=== PATIENT | male | born 2000 | race African-American/Black ===

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

== ENCOUNTER 2020-03-17 11:15 | Emergency (ER) | payer SELFPAY ==
[2020-03-17 11:25] VITALS: BP 138/64
--- NOTE | 2020-03-17 11:39 | ED Physician Documentation ---
History of Present Illness - Stated complaint Stated Complaint: L ANKLE PX - Chief complaint Chief Complaint: Trauma Ext - Additonal information Additional information: 19-year-old male comes to the emergency department with acute left lower leg ankle pain and swelling. 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 He inverted his left ankle. He has tenderness just above the lateral malleolus. No history of previous injury to this foot. Unable to bear weight on the foot. Past medical history unremarkable. Takes no prescribed medications. Review of Systems Constitutional: reports: Reviewed and negative Ears: reports: Reviewed and negative Nose: reports: Reviewed and negative Throat: reports: Reviewed and negative Cardiac: reports: Reviewed and negative Respiratory: reports: Reviewed and negative Skin: reports: Reviewed and negative Musculoskeletal: reports: Joint pain (left ankle), Joint swelling (left ankle) Neurologic: reports: Reviewed and negative Psychiatric: reports: Reviewed and negative PD PAST MEDICAL HISTORY - Past Surgical History Past Surgical History: No - Present Medications Home Medications: Ambulatory Orders Medication Instructions Recorded Confirmed raNITIdine [Zantac] 150 mg PO BID #30 tablet 12/19/18 - Allergies Allergies/Adverse Reactions: Allergies Allergy/AdvReac Type Severity Reaction Status Date / Time No Known Drug Allergies Allergy Verified 03/17/20 11:24 - Social History Does the pt smoke?: No Smoking Status: Never smoker Does the pt drink ETOH?: No Does the pt have substance abuse?: No - POLST Patient has POLST: No PD ED PE EXPANDED - Extremities Extremities: Left ankle (Swelling and ecchymosis left lateral malleolus. Most of the tenderness is just proximal to the malleolus. No tenderness on the medial ankle or foot. Full range of motion though painful.) Results - Vitals Vitals: Vital Signs - 24 hr 03/17/20 11:21 Temperature 36.4 C L Heart Rate 73 Respiratory 16 Rate Blood Pressure 138/64 H O2 Saturation 98 Oxygen O2 Source Room air - Rads (name of study) left ankle Radiology: EMP read indepedently (12 fracture mildly displaced left distal fibular fracture) PD MEDICAL DECISION MAKING - ED course Complexity details: reviewed results, re-evaluated patient, considered differential, d/w patient ED course: 19-year-old male presents the emergency department with left ankle pain and swelling after an inversion injury while helping move some rocks this afternoon. On x-ray he has a mildly displaced left distal fibular fracture. This gentleman was placed in stirrup splint given crutches and advised to be nonweightbearing. Will be referred to orthopedics for follow-up. Departure - Departure Disposition: 01 Home, Self Care Clinical Impression: Closed left fibular fracture Qualifiers: Encounter type: initial encounter Fibula location: distal Fracture morphology: unspecified fracture morphology Qualified Code(s): S82.832A - Other fracture of upper and lower end of left fibula, initial encounter for closed fracture Condition: Stable Record reviewed to determine appropriate education?: Yes Instructions: ED Fx Lower Ext Follow-Up: [facility] [Provider Group] - Within 1 week Comments: The x-ray shows that you have a mildly displaced distal left fibula fracture. We have placed you in a temporary splint. I have also referred you to be seen by the orthopedic doctors. Your splint must be kept clean and dry. If it gets wet return to the ER to have it replaced. For pain I would like you to take ibuprofen 600 mg with food 2-3 times a day or use Tylenol 500 mg 2-3 times a day. If at any point you have concerned that your splint is too tight, you have numbness or tingling in your fingers, splint gets wet, you have any fevers or concerns of infection return to the ER for a second look. You must remain nonweightbearing on this left foot and ankle until cleared by the orthopedic doctors.
--- NOTE | 2020-03-17 11:56 | XRAY Report ---
PROCEDURE: Ankle 3 View LT INDICATIONS: trauma. heard a pop TECHNIQUE: 3 views of the ankle were acquired. COMPARISON: None FINDINGS: Bones: There is a minimally displaced fracture of the distal fibula. Fracture lucency extends into th e tibiofibular syndesmosis. Soft tissues: No tibiotalar joint effusion. Achilles tendon appears normal. Lateral soft tissue sw elling is noted and ligamentous injury cannot be excluded. IMPRESSION: Distal fibula fracture. Reviewed by: Julienne Ramsey MD, PhD on 03/17/2020 11:55 AM PST Approved by: Julienne Ramsey MD, PhD on 03/17/2020 11:55 AM PST Station ID: [id number]
== END 2020-03-17 12:30 | disposition home or self-care (01) ==
LOC: ED 11:15
DX: S82.832A Other fracture of upper and lower end of left fibula, initial encounter for closed fracture (principal); X50.1XXA Overexertion from prolonged static or awkward postures, initial encounter; Y93.89 Activity, other specified
CPT/HCPCS: 99281; 99283

== ENCOUNTER 2020-04-30 18:03 | Outpatient (CLI) | payer MEDICAID ==
--- NOTE | 2020-04-30 14:21 | XRAY Report ---
PROCEDURE: Ankle 3 View LT INDICATIONS: NONDISPLACED FX OF L LATERAL MALLEOLUS TECHNIQUE: 3 views of the ankle were acquired. COMPARISON: 03/17/2020 FINDINGS: Bones: Healing oblique fracture of distal fibular shaft is seen with fracture line remains visible. N o new fracture or dislocation. Ankle mortise is normally aligned. No suspicious bony lesions. Soft tissues: No tibiotalar joint effusion. Achilles tendon appears normal. IMPRESSION: Healing nondisplaced oblique fracture involving distal fibular shaft/lateral malleolus w ith stable and anatomic ankle alignment. Reviewed by: Christiano Montilla MD on 04/30/2020 2:20 PM PST Approved by: Christiano Montilla MD on 04/30/2020 2:20 PM PST Station ID: [id number]
== END 2020-04-30 23:59 | disposition home or self-care (01) ==
LOC: DI.N 18:03
PROVIDERS: ATTEND Orthopaedic Surgery
DX: S82.65XA Nondisplaced fracture of lateral malleolus of left fibula, initial encounter for closed fracture (principal)

== ENCOUNTER 2020-12-23 16:52 | Outpatient (CLI) | payer MEDICAID | END 2020-12-23 16:53 | disposition home or self-care (01) | LOC: COV 16:52 | PROVIDERS: ATTEND Family Medicine | DX: R50.9 Fever, unspecified (principal); M79.10 Myalgia, unspecified site; R53.83 Other fatigue; R07.0 Pain in throat; Z20.822 Contact with and (suspected) exposure to COVID-19 ==

== ENCOUNTER 2022-01-03 19:36 | Emergency (ER) | payer MEDICAID ==
[2022-01-03 19:43] VITALS: BP 138/70
[2022-01-03] MEDS ORDERED: DOXYCYCLINE 100 MG TABLET PO STA (20:57)
[2022-01-03] MEDS ORDERED: TETANUS/DIPHTHERIA/PERTUSSIS 0.5 ML SYRINGE IM ONE (20:57)
--- NOTE | 2022-01-03 21:00 | ED Physician Documentation ---
History of Present Illness - Stated complaint Stated Complaint: ANKLE SWELLING - Chief complaint Chief Complaint: Wound - Additonal information Additional information: 21-year-old male presents emergency department for evaluation of pain and swelling to his left anterior ankle. Reports that 1 month ago he dropped A glass bottle. It shattered. He did not think anything of it though he did notice he had a superficial cut there. He does not think that glass was embedded. Over the last week or so he has had some progressive swelling and redness of the anterior ankle. He is able to easily ambulate. No fevers or red streaking. Over the last 24 hours he has developed a pustule. Uncertain of his last tetanus. No history of MRSA Review of Systems Constitutional: reports: Reviewed and negative Ears: reports: Reviewed and negative Throat: reports: Reviewed and negative Cardiac: reports: Reviewed and negative Respiratory: reports: Reviewed and negative GI: reports: Reviewed and negative : reports: Reviewed and negative Skin: reports: Lesions Musculoskeletal: reports: Joint pain PD PAST MEDICAL HISTORY - Past Medical History Past Medical History: No - Past Surgical History Past Surgical History: No - Present Medications Home Medications: Ambulatory Orders Medication Instructions Recorded Confirmed raNITIdine [Zantac] 150 mg PO BID #30 tablet 12/19/18 Doxycycline Hyclate 100 mg PO BID #14 cap 01/03/22 - Allergies Allergies/Adverse Reactions: Allergies Allergy/AdvReac Type Severity Reaction Status Date / Time No Known Drug Allergies Allergy Verified 01/03/22 19:41 - Social History Does the pt smoke?: No Smoking Status: Never smoker Does the pt drink ETOH?: No Does the pt have substance abuse?: No - Immunizations Immunizations are current?: Yes - POLST Patient has POLST: No PD ED PE EXPANDED - General General: Alert - Extremities Extremities: Left ankle (Mild swelling erythema and pustule of the dorsum of the left ankle. Normal flexion extension and range of motion of the ankle joint. Normal gait.) Results - Vitals Vitals: Vital Signs - 24 hr 01/03/22 19:41 Temperature 36.7 C Heart Rate 88 Respiratory 15 Rate Blood Pressure 138/70 H O2 Saturation 100 Oxygen O2 Source Room air - Rads (name of study) left ankle xr Radiology: EMP read indepedently (No obvious foreign body) Procedures - Abscess I&D (location) left ankle Incision: Irrigated, Packed, Culture obtained, Other (Pustule was deroofed and a moderate amount of purulent fluid drained (2ml). Culture obtained) Other: Pt tolerated well, Dressing applied, Antibiotic prescribed, Other PD MEDICAL DECISION MAKING - ED course Complexity details: considered differential, d/w patient, d/w family ED course: 21-year-old male presents emergency department for evaluation of a wound infection on his left anterior ankle sustained after a glass bottle broke 1 month ago. He has not had any significant pain but over the last week has developed some mild erythema now pustule. The pustule was deroofed and a small abscess was seen. It was irrigated and then packed. Culture was obtained. Patient will be started on doxycycline. X-ray does not reveal an obvious foreign body or glass debris. Patient has no micromotion tenderness and a normal gait. Very low suspicion for a joint infection. Patient will follow-up at a local walk-in clinic for reevaluation within the next week. Emergent return precautions were discussed sooner for return Departure - Departure Disposition: 01 Home, Self Care Clinical Impression: Cutaneous abscess of left ankle Condition: Stable Record reviewed to determine appropriate education?: Yes Prescriptions: Doxycycline Hyclate 100 mg PO BID #14 cap Comments: Liang, you were seen today in the emergency department for evaluation of an abscess that is developed on your ankle. It is possible that when your ankle was cut a week ago a small shard of glass is try to work its way through the skin but now an infection has developed. We did the roof the pustule that it formed. There is a small abscess. We did send a culture. I would like to start you on a medication called doxycycline. Take this twice daily for the next week. This prescription has been sent to the [facility] in [place]. Please place a warm compress over your left ankle for 10 minutes 3 times a day. Tomorrow after showering you can remove the packing. Place a simple antibiotic ointment such as bacitracin or Neosporin over the wound and then a bandage. Your tetanus was updated today and is good for the next 7 to 10 years. With the antibiotics, warm compress I would expect improve pain redness and swelling over the next 48 to 72 hours. If not improving, you have increased redness, red streaking or develop any fevers then please return immediately to the ER for second evaluation. I would like you to try and follow-up in 1 week with a primary care doctor or at one of our local walk-in clinics to ensure that this infection is fully resolving
--- NOTE | 2022-01-03 21:41 | XRAY Report ---
PROCEDURE: Ankle 3 View LT INDICATIONS: evaluate for glass foreign body TECHNIQUE: 3 views of the ankle were acquired. COMPARISON: 04/30/20 FINDINGS: Bones: No fractures or dislocations. Ankle mortise is normally aligned. No suspicious bony lesions . Soft tissues: No radiopaque foreign bodies. No tibiotalar joint effusion. Achilles tendon appears n ormal. IMPRESSION: 1. No fracture or radiopaque foreign body. Reviewed by: David Cedeño MD on 01/03/2022 9:40 PM PDT Approved by: David Cedeño MD on 01/03/2022 9:40 PM PDT Station ID: [id number]
== END 2022-01-03 21:12 | disposition home or self-care (01) ==
LOC: ED 19:36
DX: L02.416 Cutaneous abscess of left lower limb (principal)
CPT/HCPCS: 10060; 73610; 87070; 87205; 90471; 90715; 99284; A9270

== ENCOUNTER 2022-07-12 19:06 | Outpatient (CLI) | payer MEDICAID ==
[2022-07-13 00:02] LABS: CHLAMYDIA TRACHOMATIS DNA POSITIVE (NEGATIVE); NEISSERIA GONORRHOEAE DNA NEGATIVE (NEGATIVE)
== END 2022-07-12 23:59 | disposition home or self-care (01) ==
LOC: LAB.N 19:06
PROVIDERS: ATTEND Physician Assistant
DX: Z11.3 Encounter for screening for infections with a predominantly sexual mode of transmission (principal)
CPT/HCPCS: 87491; 87591; 87661

== ENCOUNTER 2022-07-14 15:49 | Outpatient (CLI) | payer MEDICAID ==
[2022-07-15 00:04] LABS: CHLAMYDIA TRACHOMATIS DNA POSITIVE (NEGATIVE); NEISSERIA GONORRHOEAE DNA NEGATIVE (NEGATIVE)
[2022-07-16 07:08] LABS: RPR Non Reactive (Non Reactive)
[2022-07-16 11:08] LABS: HCV AB Non Reactive (Non Reactive)
[2022-07-17 05:08] LABS: HIV SCREEN 4TH GENERATION Non Reactive (Non Reactive)
== END 2022-07-14 15:50 | disposition home or self-care (01) ==
LOC: LAB.N 15:49
PROVIDERS: ATTEND Physician Assistant
DX: Z11.3 Encounter for screening for infections with a predominantly sexual mode of transmission (principal)
CPT/HCPCS: 86592; 86803; 87389; 87491; 87591; 87661

== ENCOUNTER 2022-09-11 08:33 | Emergency (ER) | payer MEDICAID ==
--- NOTE | 2022-09-11 08:51 | ED Physician Documentation ---
PD HPI CHEST PAIN - Stated complaint Stated Complaint: CHEST PX, LIGHTHEADED - History obtained from History obtained from: Patient - Additional information Additional information: He woke up this morning at 630 with sharp stabbing right lower chest pain. He has never had this before. He is mildly short of breath with it. No history of heart or lung problems. No recent travel. No pedal edema or calf pain. PD PAST MEDICAL HISTORY - Past Surgical History Past Surgical History: No - Present Medications Home Medications: Ambulatory Orders Medication Instructions Recorded Confirmed No Known Home Medications 09/11/22 09/11/22 - Allergies Allergies/Adverse Reactions: Allergies Allergy/AdvReac Type Severity Reaction Status Date / Time No Known Drug Allergies Allergy Verified 01/03/22 19:41 - Social History Does the pt smoke?: No Smoking Status: Never smoker Does the pt drink ETOH?: No Does the pt have substance abuse?: No - Immunizations Immunizations are current?: Yes - POLST Patient has POLST: No PD ED PE NORMAL - Vitals Vital signs reviewed: Yes - General General: Alert and oriented X 3, No acute distress - HEENT HEENT: PERRL, EOMI - Neck Neck: Supple, no meningeal sign, No bony TTP - Cardiac Cardiac: RRR, No murmur - Respiratory Respiratory: No respiratory distress, Clear bilaterally - Abdomen Abdomen: Non tender - Derm Derm: No rash - Neuro Neuro: Alert and oriented X 3, Normal speech Results - Vitals Vitals: Vital Signs - 24 hr 09/11/22 08:35 Temperature 36.9 C Heart Rate 65 Respiratory 18 Rate Blood Pressure 128/71 O2 Saturation 95 Oxygen O2 Source Room air - EKG (time done) 0841 EKG releavant findings:: EKG personally interpreted by author of this note. Relevant findings are: Rate: Rate (enter#) (62) Rhythm: NSR [place]: Normal Intervals: Normal [place] Ischemia: ST elevation c/w repol. No: ST elevation c/w ischemia, ST depression - Labs Labs: Laboratory Tests 09/11/22 09/11/22 09/11/22 08:56 08:56 08:56 WBC 5.4 RBC 5.00 Hgb 14.3 Hct 40.0 L MCV 80.0 MCH 28.6 MCHC 35.8 RDW 13.2 Plt Count 320 MPV 9.9 Neut # (Auto) 3.1 Lymph # (Auto) 1.5 [place] # (Auto) 0.4 Eos # (Auto) 0.3 Baso # (Auto) 0.1 Absolute Nucleated RBC 0.00 Nucleated RBC % 0.0 Sodium 140 Potassium 3.7 Chloride 106 Carbon Dioxide 24 Anion Gap 10.0 BUN 11 Creatinine 0.8 Estimated GFR (MDRD) 147 Glucose 92 Calcium 9.2 Troponin I High Sens < 2.3 L PD Medical Decision Making - ED course ED course: CBC, BMP, troponin, chest x-ray all negative. PERC negative. Heart score 0 On reevaluation at 9:30 AM he is pain-free. Departure - Departure Disposition: 01 Home, Self Care Clinical Impression: Atypical chest pain Condition: Good Record reviewed to determine appropriate education?: Yes Instructions: ED Chest Pain Atypical Unkn Cause Comments: Cardiac testing and chest x-ray are normal. Take it easy today, return for new or worsening symptoms. Follow-up with your primary care physician, next available appointment. Forms: Activity restrictions
[2022-09-11 09:03] LABS: BASOPHILS # (AUTO) 0.1 10^3/uL (0.0-0.1); BASOPHILS % (AUTO) 1.5 %; EOSINOPHILS # (AUTO) 0.3 10^3/uL (0.0-0.7); EOSINOPHILS % (AUTO) 6.3 %; HGB - HEMOGLOBIN 14.3 g/dL (14.0-18.0); LYMPHOCYTES # (AUTO) 1.5 10^3/uL (1.5-3.5); LYMPHOCYTES % (AUTO) 28.3 %; MEAN CORPUSCULAR HEMOGLOBIN 28.6 pg (27.0-31.0); MEAN CORPUSCULAR HGB CONC 35.8 g/dL (32.0-36.0); MEAN PLATELET VOLUME 9.9 fL (7.4-11.4); MONOCYTES # (AUTO) 0.4 10^3/uL (0.0-1.0); MONOCYTES % (AUTO) 6.7 %; NEUTROPHILS # (AUTO) 3.1 10^3/uL (1.5-6.6); PLT - PLATELET COUNT 320 10^3/uL (130-450); RED CELL DISTRIBUTION WIDTH 13.2 % (12.0-15.0); WHITE BLOOD COUNT 5.4 x10^3/uL (4.8-10.8)
[2022-09-11 09:13] LABS: CALCIUM 9.2 mg/dL (8.5-10.3); CREATININE 0.8 mg/dL (0.6-1.2); POTASSIUM 3.7 mmol/L (3.5-5.0)
--- NOTE | 2022-09-11 09:15 | XRAY Report ---
PROCEDURE: Chest 1 View X-Ray INDICATIONS: chest pain TECHNIQUE: One view of the chest was acquired. COMPARISON: None. FINDINGS: Surgical changes and devices: None. Lungs and pleura: No pleural effusions or pneumothorax. Lungs are clear. Mediastinum: Mediastinal contours appear normal. Heart size is normal. Bones and chest wall: No suspicious bony lesions. Overlying soft tissues appear unremarkable. IMPRESSION: No acute cardiopulmonary process. Reviewed by: Murray Ferrell MD on 09/11/2022 9:13 AM PDT Approved by: Murray Ferrell MD on 09/11/2022 9:13 AM PDT Station ID: [id number]
[2022-09-11 09:39] VITALS: BP 131/65
== END 2022-09-11 09:36 | disposition home or self-care (01) ==
LOC: ED 08:33
DX: R07.89 Other chest pain (principal)
CPT/HCPCS: 36415; 80048; 84484; 85025; 93005; 99283; 99284

== ENCOUNTER 2023-01-18 09:32 | Outpatient (CLI) | payer OTHER, MEDICAID ==
--- NOTE | 2023-01-18 17:03 | XRAY Report ---
PROCEDURE: Knee 4 View RT INDICATIONS: SPRAIN OF OTHER SPECIFIED PARTS OF RIGHT KNEE TECHNIQUE: 4 views of the knee was obtained. COMPARISON: None FINDINGS: Bones: No fractures or dislocations. No suspicious bony lesions. Soft tissues: No knee joint effusion. No suspicious soft tissue calcifications or masses. IMPRESSION: Unremarkable knee radiographs Reviewed by: Theodore Jama MD on 01/18/2023 4:02 PM [facility]DT Approved by: Theodore Jama MD on 01/18/2023 4:02 PM AKDT Station ID: [id number]
== END 2023-01-18 09:33 | disposition home or self-care (01) ==
LOC: DI 09:32
PROVIDERS: ATTEND Registered Nurse
DX: S83.8X1A Sprain of other specified parts of right knee, initial encounter (principal)